=== PATIENT | female | born 1955 | race African-American/Black ===

== ENCOUNTER 2020-11-01 02:20 | Emergency (ER) | payer BC, MEDICARE ==
[2020-11-01] MEDS ORDERED: diphenhydrAMINE 25 MG CAP ONE (02:48)
== END 2020-11-01 02:52 | disposition home or self-care (01) ==
LOC: NAV ERS 02:20
DX: H65.92 Unspecified nonsuppurative otitis media, left ear (principal); I25.10 Atherosclerotic heart disease of native coronary artery without angina pectoris; I10 Essential (primary) hypertension; E66.9 Obesity, unspecified; Z79.899 Other long term (current) drug therapy
CPT/HCPCS: 99282